=== PATIENT | male | born 1995 | race Caucasian/White ===

== ENCOUNTER 2017-03-21 13:00 | Inpatient (IN) | payer OTHER ==
--- NOTE | ~2017-03-21 | PN ---
Unit #: [id number] #: [id number] Patient: LESLIE SCHNEIDER [id number] [facility] [address] [place] [address] [id number] MR#: [id number] NAME: LESLIE SCHNEIDER. ROOM: [facility] Age: 22 Sex: M Admission Date: 03/21/2017 : 1995 Attending Physician: Allan Keating M.D. Admitting Physician: Allan Keating M.D. Primary Care Physician: Primary Care Physician Pooja HANSON PROGRESS NOTES DATE 03/24/2017 DISCUSSION Mr. Schneider is a 22-year-old, white male with substance abuse and mood disorder who was seen today and chart was reviewed and case was discussed with the staff. He has been anxious, withdrawn though has not shown any agitation, irritability or behavioral problems and has been cooperative with the treatment recommendations. He has been taking the medication and tolerating them fairly well with no reported side effects. MENTAL STATUS EXAM Young white male who was casually dressed with fair personal hygiene, appears to be in no acute distress or discomfort. He was awake and alert on interaction with intact orientation. His mood was anxious and depressed with congruent affect. His speech was slow and goal directed. He denies any suicidal or homicidal ideation. His insight and judgement remains slightly impaired. TREATMENT PLAN 1. We will continue him on his current medications and treatment protocol. We will monitor his response to the medication and make further adjustments as needed. 2. We will continue to follow up. Dictated by... Kaylee Caceres/vickie TD: 03/25/2017 02:27 JOB #: [id number] Unit #: [id number] #: [id number] Patient: LESLIE SCHNEIDER MARGIE PROGRESS NOTES Page 1 of 1 X Allan Keating MD PROGRESS NOTE
--- NOTE | ~2017-03-21 | PN ---
Unit #: [id number] #: [id number] Patient: LESLIE SCHNEIDER [id number] [facility] [address] [place] [address] [id number] MR#: [id number] NAME: LESLIE SCHNEIDER. ROOM: [facility] Age: 22 Sex: M Admission Date: 03/21/2017 : 1995 Attending Physician: Allan Keating M.D. Admitting Physician: Allan Keating M.D. Primary Care Physician: Primary Care Physician Pooja HANSON PROGRESS NOTES DATE OF SERVICE 03/23/2017 DISCUSSION Mr. Schneider is a 22-year-old white male who was seen today. Chart was reviewed and case was discussed with the staff. He has been anxious and withdrawn though has not shown any agitation or irritability and has been cooperative with treatment recommendations and had been taking the medications and tolerating them fairly well with no reported side effects. MENTAL STATUS EXAMINATION Young white male who is casually dressed with fair personal hygiene, appears to be in no acute distress or discomfort. The patient was awake and alert on interaction with intact orientation. Her mood is anxious with congruent affect. His speech is slow and goal-directed. He denies any suicidal or homicidal ideations. His insight and judgment remain slightly impaired. TREATMENT PLAN 1. We will continue him on his current treatment protocol including his detox medications, and we will monitor his response to the medications and make further adjustments as needed. 2. We will continue to follow up. Dictated by... Kaylee Caceres/waldemarg TD: 03/24/2017 05:25 JOB #: [id number] Unit #: [id number] #: [id number] Patient: LESLIE SCHNEIDER PROGRESS NOTES Page 1 of 1 X Allan Keating MD PROGRESS NOTE
--- NOTE | ~2017-03-21 | PA ---
Unit #: [id number] #: [id number] Patient: LESLIE SCHNEIDER [id number] [facility] [address] [place] [address] [id number] MR#: [id number] NAME: LESLIE SCHNEIDER. ROOM: 77 Age: 22 Sex: M Admission Date: 03/21/2017 : 1995 Date of Assessment: 03/22/2017 Attending Physician: Allan Keating M.D. Admitting Physician: Allan Keating M.D. Primary Care Physician: Primary Care Physician No PSYCHIATRIC ASSESSMENT IDENTIFICATION DATA The patient is a 22-year-old single white male, who is a resident of [place], [place], and is known to us from previous encounter, was self-referred to the hospital on a voluntary basis accompanied by his mother. CHIEF COMPLAINT "I've been really depressed". HISTORY OF PRESENT ILLNESS The patient is a 22-year-old white male with history of substance abuse and dependence, who is known to us from previous encounter, was brought to the hospital accompanied by his mother with a COWS score of 15 indicating significant opioid withdrawals. He stated "I've been really depressed. I have been getting high. I feel like I want to overdose myself. I do not know I just have been going through depression for a month and tired of being depressed and just want to overdose and kill myself." He does report increasing depression, anxiety, irritability, restlessness, feelings of hopelessness and helplessness, and suicidal ideations with an intent and plan to overdose and as such, recommendation for inpatient level of care for safety and stabilization was made and the patient was transferred to us. SUBSTANCE ABUSE HISTORY The patient reports history of alcohol, cannabis, and opioids and benzodiazepine abuse, and currently heroin has been his drug of choice and reports that he has been using IV heroin on a daily basis. PAST PSYCHIATRIC HISTORY The patient has a history of multiple inpatient chemical dependency treatment, states [facility], 2013, 2014, 2016, has been to the [facility], and the [facility] and has had an outpatient treatment in the past as well and appears to be diagnosed and treated for mood disorder, but currently is not active in any treatment program, is not seeing a psychiatrist, not taking any psychotropic medications. PAST MEDICAL HISTORY No acute or chronic medical illnesses. ALLERGIES Adderall. Unit #: [id number] #: [id number] Patient: LESLIE SCHNEIDER CURRENT MEDICATIONS None. PERSONAL AND SOCIAL HISTORY A 22-year-old white male, who reports that he is single, unemployed, and lives at his home with his mother and has fairly decent social support system. MENTAL STATUS EXAMINATION Young white male, who was casually dressed with fair personal hygiene, appears to be in no acute distress or discomfort. He was awake and alert on interaction with intact orientation to time, place, and person. His mood was anxious and depressed with a congruent affect. Speech was slow and restricted in content. He reports having suicidal ideations, but denies any homicidal ideations, and also denies any auditory or visual hallucinations. His insight and judgment remain significantly impaired. DIAGNOSTIC IMPRESSION Psychiatric: Major depressive disorder, recurrent, moderate, without psychotic features; opioid dependence, moderate and acute withdrawals. Medical: None. Stressors: Moderate psychosocial stressors. TREATMENT PLAN 1. The patient has presented with history of mood disorder and substance abuse and has been decompensating and will need inpatient hospitalization for detoxification, safety, and stabilization. We will start him on detox protocol. We will closely monitor for any worsening withdrawal symptoms. 2. Supportive therapy was provided to the patient. 3. Safe, structured, and nourishing environment will be provided. ESTIMATED LENGTH OF STAY 4 to 5 days. ABILITY TO HELP SELF Limited. WILLINGNESS TO HELP SELF The patient appears to be willing to help self. STRENGTHS 1. Communicative. 2. Cooperative. PROBLEMS 1. Chronic dysphoric symptoms. 2. Chronic chemical dependency. 3. Poor social support system. DISCHARGE CRITERIA This will be contingent upon the patient's ability to go through detox without any significant withdrawal symptoms as well as his ability to stay safe to himself, particularly after discharge from the hospital. Dictated by... Allan Keating M.D. Unit #: [id number] #: [id number] Patient: LESLIE SCHNEIDER IAA/modl TD: 03/22/2017 12:21 JOB #: [id number] PSYCHIATRIC ASSESSMENT Page 1 of 1 X Allan Keating MD X PSYCHIATRIC ASSESSMENT
--- NOTE | ~2017-03-21 | A ---
[facility] Nutrition Therapy DATE: 03/24/17 Patient: LESLIE SCHNEIDER Physician: RAFAELAF Address: [address] [place] [address] Room/Bed: [address], Zip: [place] [address] Admit Date: 03/21/17 Date of : [birth year] Height: 6 0 Weight: [phone] NUTRITIONAL ASSESSMENT: REASON: LOW BMI (17.6) PATIENT ADMITTED FOR DETOX AND SI PMH: NONE Anthropometrics: HT: 72", WT: 130#, BMI: 17.6 Labs: 03/22/17- NUTRITIONAL LABS WNL Meds: DESYREL, WELLBUTRIN XL, DETOX PROTOCOL Assessment: PATIENT IS A 22 Y/O MALE ADMITTED FOR DETOX AND SI. PATIENT IS CURRENTLY UNEMPLOYED, LIVES WITH HIS MOTHER, SMOKES 1 PPD, HAS DAILY HEROIN USE, AND HAS FREQUENT XANAX USE. PATIENT STATED AN "ALRIGHT" APPETITE WITH NO RECENT WEIGHT CHANGES. NURSING REPORTS CONSISTENTLY GOOD PO INTAKES. WEIGHT HX PER [employer] SHOWS WEIGHT FLUCTUATIONS OF 115-140# OVER THE LAST 3 YEARS. PATIENT HAS A HX OF MULTIPLE INPATIENT CHEMICAL DEPENDENCY TREATMENTS. HE DID HAVE SOME C/O NAUSEA AND STOMACH CRAMPS YESTERDAY D/T DETOXING AND WAS GIVEN PRN MEDICATIONS. PATIENT IS ON A REGULAR DIET WITH NO CAFFEINE. Dx: INADEQUATE NUTRIENT INTAKE R/T CURRENT CONDITION, DETOX AEB LOW BMI OF 17.6 Intervention: REGULAR DIET, NO CAFFEINE, LARGE PORTION ENTREES, MEDS PER MD, DETOX, PSYCH Monitoring, Evaluation and Goals: 1. PO INTAKES >50% OF MEALS 2. GRADUAL WEIGHT GAIN TOWARDS A HEALTHY BMI OF 19-25 MONITOR: WEIGHTS, LABS, PO/FLUID INTAKES Recommendations: 1. CONTINUE REGULAR DIET TOLERATED. WILL INCREASE ENTREES TO LARGER PORTIONS FOR LUNCH AND DINNER TO INCREASE CALORIC INTAKE. 2. ENCOURAGE ADEQUATE PO AND FLUID INTAKES 3. IF PO INTAKES FALL BELOW 50% OF MEALS PLEASE ORDER ENSURE BID TO PROMOTE ADEQUATE KCAL AND PROTEIN INTAKES RD TO F/U PER PROTOCOL AND PRN R/T PATIENT MILDLY COMPROMISED [facility] Nutrition Therapy DATE: 03/24/17 Patient: LESLIE SCHNEIDER Physician: MINA Address: [address] [place] [address] Room/Bed: [address], Zip: [place] [address] Admit Date: 03/21/17 Date of : [birth year] Height: 6 0 Weight: [phone] Respectfully, JEFFRY SHAIKH RD, LD [facility] Nutrition[facility] cc: client file
--- NOTE | ~2017-03-21 | DS ---
Unit #: [id number] #: [id number] Patient: [facility]LIE SCHNEIDER [id number] [facility] [address] [place] [address] [id number] MR#: [id number] NAME: LESLIE SCHNEIDER. ROOM: [facility] Age: 22 Sex: M Admission Date: 03/21/2017 : 1995 Discharge Date: 03/25/2017 Attending Physician: Allan Keating M.D. Primary Care Physician: Primary Care Physician No DISCHARGE SUMMARY IDENTIFYING DATA Mr. Siegel is a 22-year-old single white male, who is a resident of [place], [place] and is known to us from previous encounter, and was self-referred to the hospital on a voluntary basis. DISCHARGE DIAGNOSES Psychiatric: Major depressive disorder, recurrent, moderate, without psychotic features; opioid dependence, moderate, in acute withdrawals. Medical: None. Stressors: Moderate psychosocial stressors. HISTORY OF PRESENT ILLNESS Please see initial psychiatric evaluation for details. PAST PSYCHIATRIC HISTORY Please see initial psychiatric evaluation for details. PAST MEDICAL HISTORY Please see initial psychiatric evaluation for details. HOSPITAL COURSE The patient was admitted to the adult chemical dependency unit at [facility] and was oriented to the hospital environment. Routine p.r.n. medications were initiated, and he was started on the detox protocol and was also started back on his home medications and was closely monitored. He was taking the medications regularly and was tolerating them fairly well and was able to come out of the detox without any complications and was denying any suicidal ideations, intent, or plan and was insistent on wanting to go home and was not seen to be a candidate for involuntary psychiatric hospitalization and as such, it was decided he will be discharged home and will continue treatment on an outpatient basis. DISCHARGE MEDICATIONS Wellbutrin XL 150 mg in the morning for depression. DISCHARGE CONDITION Stable. PROGNOSIS Fair. Dictated by... Allan Keating M.D. Unit #: [id number] #: [id number] Patient: LESLIE SCHNEIDER IAA/modl TD: 03/25/2017 07:48 JOB #: [id number] DISCHARGE SUMMARY Page 1 of 1 X Allan Keating MD DISCHARGE SUMMARY
--- NOTE | ~2017-03-21 | PN ---
Unit #: [id number] #: [id number] Patient: LESLIE SCHNEIDER [id number] [facility] [address] [place] [address] [id number] I MR#: [id number] NAME: LESLIE SCHNEIDER. ROOM: [facility] Age: 22 Sex: M Admission Date: 03/21/2017 : 1995 Attending Physician: Allan Keating M.D. Admitting Physician: Allan Keating M.D. Primary Care Physician: Primary Care Physician Pooja SOL NOTES DATE 03/22/2017 DISCUSSION Mr. Schneider is a 22-year-old, white male with substance abuse and mood disorder who was seen today and chart was reviewed and case was discussed with the staff. He seemed to be anxious, withdrawn with some distress and discomfort. Meanwhile, he has been cooperative with the treatment recommendations. He has been taking the medication and tolerating them fairly well with no reported side effects. MENTAL STATUS EXAM Young white male who was casually dressed with fair personal hygiene, appears to be in no acute distress or discomfort. He was awake and alert on interaction with intact orientation. His mood was anxious with congruent affect. He denies any suicidal or homicidal ideation. Also, denies any auditory or visual hallucinations. His insight and judgement remains slightly impaired. TREATMENT PLAN 1. We will continue him on his current treatment protocol. We will monitor his response to the medication and make further adjustments as needed. 2. We will continue to follow up. Dictated by... Kaylee Caceres/vickie TD: 03/24/2017 04:19 JOB #: [id number] Unit #: [id number] #: [id number] Patient: LESLIE SCHNEIDER MARGIE PROGRESS NOTES Page 1 of 1 X Allan Keating MD PROGRESS NOTE
--- NOTE | ~2017-03-21 | HP ---
Unit #: [id number] #: [id number] Patient: LESLIE SCHNEIDER [id number] [place] [address] [id number] MR#: [id number] NAME: LESLIE SCHNEIDER. ROOM: [facility] Age: 22 Sex: M Admission Date: 03/21/2017 : 1995 Attending Physician: Allan Keating M.D. Admitting Physician: Allan Keating M.D. Primary Care Physician: Primary Care Physician No HISTORY AND PHYSICAL HISTORY OF PRESENT ILLNESS Leslie is a 22-year-old male admitted on on 03/21/2017 for detox from heroin. PAST MEDICAL HISTORY None. PAST SURGICAL HISTORY None. SOCIAL HISTORY Smokes 1 pack of cigarettes daily. No alcohol use. Does report daily use of heroin. He is currently single and living with his mother. FAMILY HISTORY Noncontributory REVIEW OF SYSTEMS CONSTITUTIONAL: No fever or chills. HEENT: Denies any sore throat, ear pain or runny nose. CARDIOVASCULAR: Denies chest pain, irregular heart rhythm or palpitations. CHEST: Denies shortness of breath or cough. No hemoptysis. GASTROINTESTINAL: Denies nausea, vomiting, diarrhea or chronic constipation. ENDOCRINE: Denies history of increased thirst or urination. No recent significant weight loss or gain. GENITOURINARY: Denies dysuria, frequency, or hematuria. SKIN: Denies any rashes. HEMATOLOGIC: Denies history of increased bleeding or bruising. MUSCULOSKELETAL: Denies any hot, swollen joints. No generalized muscle pain. NEUROLOGIC: Denies problems with vision or speech. No frequent, severe headaches. No numbness, tingling or weakness in any extremities. Denies loss of bladder or bowel control. CURRENT MEDICATIONS None. ALLERGIES Adderall. PHYSICAL EXAMINATION GENERAL: Alert, oriented, no acute distress. Unit #: [id number] #: [id number] Patient: LESLIE SCHNEIDER VITAL SIGNS: Blood pressure 113/73, heart rate 69, respirations 18. HEIGHT: 6 feet 0. WEIGHT: 130 pounds. SKIN: Warm, dry. No rashes or lesions, track cordova, cuts, etc. HEENT: Normocephalic. TMs not viewed. Oronasal passages clear. Conjunctivae clear. PERRLA. EOM is intact. NECK: No lymphadenopathy or thyromegaly. HEART: Regular rate and rhythm. No murmur, gallop, or rub. LUNGS: Clear to auscultation bilaterally. ABDOMEN: Soft, nontender without palpable masses or hepatosplenomegaly. : Not assessed. EXTREMITIES: No evidence of cyanosis, clubbing, or edema. Moves all extremities independently without obvious deficit. NEUROLOGICAL: Grossly within normal limits. Cranial Nerves: II: Visual baig are intact. III, IV AND : Extraocular movements are intact. Pupils are equal, round and reactive to light. V: Facial sensation is grossly normal. VII: Facial movements and expression are normal. VIII: Auditory acuity grossly intact. IX, X: Uvula is midline. Phonation is normal. XI: Patient shrugs shoulders and turns head normally. XII: Tongue protrudes in the midline. Sensory and Motor Function: Sensory and motor sensation is grossly normal. Motor: moves all extremities well. Coordination: Gait is normal. Deep Tendon Reflexes: Intact. IMPRESSION Psychiatric admission. RECOMMENDATIONS PSYCHIATRIC: Per psychiatrist. MEDICAL: No contraindication to participating in facility's activities. MEDICAL PROGNOSIS Good. MEDICAL CONDITION Stable. Dictated by... Edward Norman TD: 03/22/2017 15:46 JOB #: [id number] Unit #: [id number] #: [id number] Patient: LESLIE SCHNEIDER HISTORY AND PHYSICAL Page 1 of 1 X RUDY MUSTAFA APRN HISTORY AND PHYSICAL
[~2017-03-21 13:00] MED LIST: AMOXICILLIN500 M1 PO; AURALGAN EAR DR14 ML OT; CIPRO HC OTIC S10 ML OT; ULTRAM PO; ZOFRAN ODT4 MG PO
[2017-03-22 12:36] LABS: EOSINOPHIL# 0.1 X10e3 (0-0.7); EOSINOPHIL% 2.3 % (0.0-7.0); HEMATOCRIT 38.2 % (38.0-50.0); HEMOGLOBIN 12.6 gm/dL (13.0-16.0); LYMPHOCYTE# 1.5 X10e3 (1.0-3.5); LYMPHOCYTE% 34.3 % (17.0-45.0); MEAN CELL VOLUME 84.5 FL (83-96); MEAN CORPUSCULAR HEMOGLOBIN 27.8 PG (28-34); MEAN CORPUSCULAR HGB CONC 32.9 g/dL (30-36); MEAN PLATELET VOLUME 9.4 FL (6.5-11.5); MONOCYTE# 0.6 X10e3 (0-1.0); MONOCYTE% 14.7 % (3.0-12.0); NEUTROPHIL% 47.7 % (40-75); PLATELET COUNT 217 X10e3 (140-420); RED BLOOD COUNT 4.52 X10e (3.90-5.60); RED CELL DISTRIBUTION WIDTH 15.3 % (11.0-15.5); WHITE BLOOD COUNT 4.2 X10e3 (4.0-10.5)
[2017-03-22 12:37] LABS: DIFF IND NO
[2017-03-22 13:25] LABS: ALBUMIN SERUM 3.8 g/dL (3.5-5.0); BILIRUBIN,TOTAL 0.6 mg/dL (0.2-2.0); BUN/CREATININE RATIO 23.33; CALCIUM SERUM 8.7 mg/dL (8.4-10.2); CREATININE SERUM 0.6 mg/dL (0.6-1.4); GLOM FILT RATE Estimated 144.8 mL/min (>60); POTASSIUM 4.7 mmol/L (3.5-5.1)
[2017-03-24 12:32] LABS: URINE APPEARANCE CLEAR; URINE BILIRUBIN NEG (NEG); URINE BLOOD NEG (NEG); URINE COLOR DK YELLOW; URINE GLUCOSE NEG (NEG); URINE KETONE NEG (NEG); URINE LEUKOCYTE ESTERASE NEG (NEG); URINE NITRATE NEG (NEG); URINE PH 5.5 (5-8); URINE PROTEIN NEG (NEG); URINE SPECIFIC GRAVITY 1.025 (1.003-1.035); URINE UROBILINOGEN 0.2 MG/DL (NEG)
[2017-03-24 12:46] LABS: AMPHETAMINE NEG (NEG); BARBITURATES NEG (NEG); BENZODIAZEPINES NEG (NEG); COCAINE NEG (NEG); MARIJUANA NEG (NEG); OPIATES NEG (NEG); TRICYCLIC ANTIDEPRESSANTS NEG (NEG); U METHADONE NEG (NEG)
== END 2017-03-25 09:15 | DRG 897 ==
LOC: P1E 15:29
PROVIDERS: Psychiatry & Neurology Psychiatry
PROC: HZ2ZZZZ Detoxification Services for Substance Abuse Treatment (ICD-10-PCS; principal; 2017-03-21)
DX: F11.23 Opioid dependence with withdrawal (principal); F33.1 Major depressive disorder, recurrent, moderate; F17.210 Nicotine dependence, cigarettes, uncomplicated
CPT/HCPCS: 80053; 80307; 81003; 85025; 86592